=== PATIENT | female | born 1985 | race Two or more races ===

== ENCOUNTER → 2021-07-19 | Outpatient (CLI) | payer OTHER ==
--- NOTE | 2021-07-19 15:02 | KCIC ---
Single view of the chest. 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 / Spl. Instructions: / History: Comparison: None Findings: There is no focal consolidation. There is no pleural effusion or pneumothorax. The cardiome diastinal silhouette and pulmonary vasculature are within normal limits. No acute osseous abnormaliti es are seen. Impression: No evidence of acute cardiopulmonary process. Electronically signed by: Stanislaw Salinas MD (07/19/2021 3:00 PM) [id number]
== END ==
LOC: KCIC 14:36
PROVIDERS: ATTEND Internal Medicine Pulmonary Disease
DX: R76.11 Nonspecific reaction to tuberculin skin test without active tuberculosis (principal)
CPT/HCPCS: 71045